=== PATIENT | male | born 1995 | race Caucasian/White ===

== ENCOUNTER 2023-05-29 16:21 | Emergency (ER) | payer MEDICAID ==
[~2023-05-29] VITALS: Ht 180.3 cm; Wt 83.9 kg
[2023-05-29 16:24] VITALS: BP 122/93; TEMP 98.2
[2023-05-29] MEDS ORDERED: IOHEXOL-300 100 ML VIAL IV ONE (16:56)
[2023-05-29] MEDS ORDERED: IV NS 0.9% 250 ML IV ONE (16:56)
[2023-05-29] MEDS ORDERED: KETOROLAC TROMETHAMINE INJ 30 MG/ML VIAL IM ONE (17:00)
[2023-05-29] MEDS ORDERED: IBUP-1955 PO (18:45)
[2023-05-29] MEDS ORDERED: NEOM1OIN15 TP (18:45)
[2023-05-29 19:02] VITALS: O2SAT 98
== END 2023-05-29 19:02 | disposition home or self-care (01) ==
LOC: ER 16:30
DX: S50.812A Abrasion of left forearm, initial encounter (principal); S40.811A Abrasion of right upper arm, initial encounter; S80.212A Abrasion, left knee, initial encounter; M25.562 Pain in left knee; M25.561 Pain in right knee; V29.99XA Rider (driver) (passenger) of other motorcycle injured in unspecified traffic accident, initial encounter; Y93.89 Activity, other specified; Y92.89 Other specified places as the place of occurrence of the external cause; Y99.8 Other external cause status
CPT/HCPCS: 99284; 76700; 73564 ×2; J7050; Q9967